=== PATIENT | male | born 1995 | race Caucasian/White ===

== ENCOUNTER 2018-01-20 01:48 | Inpatient (IN) | payer OTHER ==
[~2018-01-20] VITALS: Ht 188 cm; Wt 74.4 kg
[2018-01-20] VITALS (9 sets, daily range): BP systolic 113–138; BP diastolic 55–86
[2018-01-20 02:15] LABS: ABSOLUTE EOSINOPHILS 0.1 thou/uL (0.0-0.7); ABSOLUTE LYMPHOCYTES 3.1 thou/uL (0.8-5.3); ABSOLUTE MONOCYTES 0.5 thou/uL (0.0-1.2); ABSOLUTE NEUTROPHILS 5.9 thou/uL (1.6-8.1); BASOPHILS 0.5 %; EOSINOPHILS 1.3 %; HEMATOCRIT 48.1 % (42.0-52.0); HEMOGLOBIN 16.3 gm/dL (14.0-18.0); LYMPHOCYTES 32.1 %; MCH 29.3 pg (26.0-34.0); MCHC 33.9 g/dL (28.0-37.0); MCV 86.5 fL (80.0-100.0); MONOCYTES 5.1 %; MPV 7.1 fl. (7.2-11.1); NUCLEATED RBCS 0 /100WBC; PLATELET COUNT* 247 thou/uL (150-400); RBC 5.56 mil/uL (4.50-6.00); RDW-CV 13.7 % (10.5-14.5); WBC 9.6 thou/uL (4.0-11.0)
[2018-01-20 02:20] LABS: ANION GAP 14 mmol/L (7-16); BUN 10 mg/dL (7-18); CALCIUM 8.9 mg/dL (8.5-10.1); CHLORIDE 88 mmol/L (98-107); CO2 24 mmol/L (21-32); CREATININE 1.2 mg/dL (0.6-1.3); GLUCOSE 121 mg/dL (70-99); POTASSIUM 3.5 mmol/L (3.5-5.1); SODIUM 126 mmol/L (136-145)
[2018-01-20 02:27] LABS: ACETAMINOPHEN < 2 ug/mL (10-30); ALCOHOL < 10 mg/dL (<10); SALICYLATE < 2.8 mg/dL (2.8-20.0)
--- NOTE | 2018-01-20 02:29 | NUR ---
CT COMPLEATED IMAGES SENT TO [facility]
[2018-01-20 02:32] LABS: ALBUMIN 4.2 g/dL (3.4-5.0); ALKALINE PHOSPHATASE 79 U/L (46-116); SGOT 30 U/L (15-37); SGPT 30 U/L (30-65); TOTAL BILIRUBIN 0.5 mg/dL (<0.1-1.0); TOTAL PROTEIN 7.8 g/dL (6.4-8.2); TROPONIN-I LEVEL <0.06 ng/mL (<0.06)
[2018-01-20 03:23] LABS: URINE BILIRUBIN NEGATIVE (Negative); URINE BLOOD 1+ (Negative); URINE CLARITY CLEAR; URINE COLOR STRAW; URINE GLUCOSE-RANDOM NEGATIVE (Negative); URINE KETONES NEGATIVE (Negative); URINE LEUKOCYTES-REFLEX 1+ (Negative); URINE NITRITE-REFLEX NEGATIVE (Negative); URINE PROTEIN NEGATIVE (Negative); URINE SPECIFIC GRAVITY <= 1.005 (1.005-1.030); URINE UROBILINOGEN 0.2 E.U./dl (0.2-1.0)
[2018-01-20 03:31] LABS: AMP/METHAMP Negative (Negative); BARBITURATES Negative (Negative); BENZODIAZEPINES Negative (Negative); COCAINE Negative (Negative); METHADONE Negative (Negative); OPIATES POSITIVE (Negative); PCP Negative (Negative); THC POSITIVE (Negative)
[2018-01-20 03:53] LABS: BACTERIA-REFLEX >30 Many /HPF (None Seen); CASTS None Seen /LPF (None Seen); CRYSTALS None Seen /LPF (None Seen); MUCUS 4-6 Moderate strn/LPF (None Seen); SQUAMOUS 0-3 Few /LPF (0-3); URINE RBC 3-10 Few /HPF (0-2); URINE WBC-REFLEX 6-15 Few /HPF (0-5)
--- NOTE | 2018-01-20 06:40 | NUR ---
PT. ADMITTED TO ROOM 6 ICU DIAGNOSIS HYPONATREMIA AND SEIZURE. PT. ADMITS TO TAKING LSD AND THEN TAKING A TYLENOL #3 BEFORE GOING TO BED WHEN PT'S GIRLFRIEND WITNESSED HIM HAVING A SEIZURE LASTING 30-60 SECONDS. PT. ALERT AND ORIENTED X4. SINUS RHYTHM. URINAL TO VOID. NS INFUSING AT 120CC/HR. ORIENTED TO ROOM/CALL LIGHT. WILL CONTINUE TO MONITOR.
[2018-01-20 10:18] LABS: CALCIUM 8.5 mg/dL (8.5-10.1)
[2018-01-20 10:22] LABS: POTASSIUM 4.6 mmol/L (3.5-5.1)
--- NOTE | 2018-01-20 11:35 | NUR ---
INTERDISIPCLINARY ROUNDS: PT ADMITTED AFTER SEIZURE AND 'LSD' USE. PT SLEEPING, NO FAMILY ALY.
--- NOTE | 2018-01-20 11:43 | EKG ---
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1995 Requested By: Jazlyn Brown Order Number: [id number] MD: Gibson Agrawal Measurements Intervals Morgan Rate: 76 P: 79 [place]: 161 QRS: 86 QRSD: 121 T: 59 QT: 407 QTc: 458 Interpretive Statements Sinus rhythm Right bundle branch block ST elev, probable normal early repol pattern Baseline wander in lead(s) V5 No previous ECG available for comparison Electronically Signed On 01-20-2018 11:43:05 CDT by Gibson Agrawal [email or web address] <ELECTRONICALLY SIGNED> By: Gibson Agrawal MD, LOCATED WITHIN [facility] 01/20/18 1143 0 021 Gibson Agrawal MD, [facility] /EPI
--- NOTE | 2018-01-20 12:26 | NUR ---
PATIENT IS M/S TELE STATUS.
[2018-01-20 14:54] LABS: CALCIUM 8.9 mg/dL (8.5-10.1); CREATININE 1.1 mg/dL (0.6-1.3); POTASSIUM 4.2 mmol/L (3.5-5.1)
--- NOTE | 2018-01-20 15:23 | NUR ---
NEUROLOGIST SEEN PATIENT, PATIENT OK TO D/C PER NEUROLOGIST STAND POINT, WOULD LIKE PATIENT TO CALL FOR APPT IN ONE WEEK FOR REPEAT EEG. CALLED [facility], [facility] REPORTED OFF, [facility] DRAWN AND CALLED TO [facility] AGAIN, DR ZHANG OK TO DISCHARGE PATIENT TO HOME.
--- NOTE | 2018-01-20 15:41 | NUR ---
PATIENT DISCHARGED WITH GIRLFRIEND. ALL BELONGINGS AND DISCHARGE INFO GIVEN TO PATIENT. ALL QUESTIONS ANSWERED.
--- NOTE | 2018-02-06 09:50 | CON ---
[address] [address] CONSULTATION Name: ALFONSO HAYES Room: [address] IN M.R.#: [id number] Admission: 01/20/18 Attend Phys: Renetta Byrd MD Discharge: 01/20/18 Date of : [birth year] Report #: [id number] THIS REPORT FOR: //name// CC: [facility] physician/PCP Renetta Byrd DATE OF SERVICE: 01/20/2018 This patient is being evaluated for the possibility of seizure. EEG was done by placing the electrode by standard 10-20 system of electrode placement. Both referential and sequential montages were used for recording. Background activity in this patient's EEG is about 11 Hz and 50 microvolts. This is a very well-formed background activity. This background activity is symmetrical. Photic stimulation was unremarkable. The patient repeatedly goes to sleep and that is associated with bilaterally symmetrical sleep spindle and vertex sharp waves and K complexes. One episode of sharper activity appeared to be present, which is not central and appeared to be present in temporal area. IMPRESSION: Lot of artifact is present and EEG is difficult to interpret. EEG does appear to be showing one episode of sharper activity when the patient goes to sleep and it is predominantly in the occipitotemporal area and is not in the central area. That finding will be consistent with lower seizure threshold or seizure disorder if strong clinical correlation is present. If doubt continues to exist about seizure, I will suggest doing a prolonged EEG or other workup or repeating this EEG when the patient is more cooperative and have less artifact to confirm this finding. Clinical correlation is recommended. <ELECTRONICALLY SIGNED> By: Papi Ribera MD 02/06/18 0950 [id number] Ribera MD /nt
== END 2018-01-20 15:35 | disposition home or self-care (01) | DRG 100 ==
LOC: M.ERS 01:48 → M.ICU 03:28 → M.TBA-ER 03:28 → M.ICU 04:01
PROVIDERS: Emergency Medicine; Internal Medicine; ADMIT Internal Medicine
DX: G40.89 Other seizures (principal); G92 Toxic encephalopathy; E87.1 Hypo-osmolality and hyponatremia; F14.90 Cocaine use, unspecified, uncomplicated; F16.90 Hallucinogen use, unspecified, uncomplicated; F12.90 Cannabis use, unspecified, uncomplicated; R63.1 Polydipsia; S49.92XA Unspecified injury of left shoulder and upper arm, initial encounter; Z79.899 Other long term (current) drug therapy; X58.XXXA Exposure to other specified factors, initial encounter; Y93.89 Activity, other specified; Y92.89 Other specified places as the place of occurrence of the external cause; Y99.8 Other external cause status